=== PATIENT | female | born 2000 | race Caucasian/White ===

== ENCOUNTER 2018-10-03 19:54 | Emergency (ER) | payer MEDICAID ==
[~2018-10-03] VITALS: Ht 162.6 cm; Wt 91.2 kg
[2018-10-03 20:01] VITALS: Ht 162.6 cm; Wt 91.2 kg
[2018-10-03 20:41] LABS: CALCIUM 9.3 mg/dL (8.5-10.1); CARBON DIOXIDE 26.7 mmol/L (21-32); CHLORIDE SERUM 99 mmol/L (98-107); CREATININE SERUM 0.9 mg/dL (0.6-1.0); GFR1 > 60 mL/min; GLUCOSE SERUM 102 mg/dL (74-106); PLATELET COUNT 356 x10^3mcL (130-400); POTASSIUM SERUM 3.4 mmol/L (3.5-5.1); RED CELL DISTRIBUTION WIDTH 13.5 % (11.5-14.5); SODIUM SERUM 137 mmol/L (136-145)
[2018-10-03 20:42] LABS: BASOPHIL % 0.4 % (0-2)
[2018-10-03 20:46] LABS: ALBUMIN 4.1 g/dL (3.4-5.0); ALKALINE PHOSPHATASE 83 U/L (46-116); ALT/SGPT 244 U/L (14-59); AST/SGOT 126 U/L (15-37); BILIRUBIN TOTAL 0.6 mg/dL (0.20-1.00)
[2018-10-03 20:48] LABS: TOTAL PROTEIN, SERUM 8.3 g/dL (6.4-8.2)
[2018-10-03 21:23] VITALS: BP 125/85
== END 2018-10-03 21:23 | disposition home or self-care (01) ==
LOC: ED 19:54
PROVIDERS: Emergency Medicine
DX: K52.9 Noninfective gastroenteritis and colitis, unspecified (principal); N39.0 Urinary tract infection, site not specified; R94.5 Abnormal results of liver function studies
CPT/HCPCS: J2405; J7030